=== PATIENT | male | born 1940 | race Caucasian/White ===

== ENCOUNTER 2019-06-12 08:19 | Day surgery (SDC) | payer MEDICARE, MEDICAID ==
[~2019-06-12] VITALS: Ht 177.8 cm; Wt 124.8 kg
[2019-06-12] VITALS (9 sets, daily range): BP systolic 111–140; BP diastolic 45–58
[2019-06-12] MEDS ORDERED: normal saline 1000ml 1,000 ML IV PRN (08:55)
[2019-06-12] MEDS ORDERED: SPIR50TA5 PO (09:13)
[2019-06-12] MEDS ORDERED: FINA5TAB11 PO (09:13)
[2019-06-12] MEDS ORDERED: FURO20TA4 PO (09:13)
[2019-06-12] MEDS ORDERED: GABA-532 PO (09:13)
[2019-06-12] MEDS ORDERED: OMEP-50 PO (09:13)
[2019-06-12] MEDS ORDERED: FLO0.4C PO (09:13)
[2019-06-12] MEDS: albumin 25% 100mL bottle x 1 IV PRN ×2 (10:11→10:37)
== END 2019-06-12 11:37 | disposition home or self-care (01) ==
LOC: SSTAY O 08:19 → MED 3N 08:20 → SSTAY O 11:37
PROVIDERS: ATTEND Radiology Diagnostic Radiology
DX: K70.31 Alcoholic cirrhosis of liver with ascites (principal); Z79.899 Other long term (current) drug therapy
CPT/HCPCS: 49083; C1729; P9047; GO378

== ENCOUNTER 2019-06-20 08:22 | Day surgery (SDC) | payer MEDICARE, MEDICAID ==
[~2019-06-20] VITALS: Ht 177.8 cm; Wt 120.5 kg
[~2019-06-20 08:22] MED LIST: FINA5TAB11 PO; FLO0.4C PO; FURO20TA4 PO; GABA-532 PO; OMEP-50 PO; SPIR50TA5 PO
[2019-06-20 08:45] VITALS: BP 144/61
[2019-06-20] MEDS ORDERED: normal saline 1000ml 1,000 ML IV PRN (08:50)
[2019-06-20] MEDS ORDERED: RANI150T8 PO (09:08)
[2019-06-20 09:30] VITALS: BP 144/61
[2019-06-20] MEDS: albumin 25% 100mL bottle x 1 IV PRN ×2 (09:55→10:30)
[2019-06-20 10:15] VITALS: BP 145/67
== END 2019-06-20 11:15 | disposition home or self-care (01) ==
LOC: MED 3N 08:22 → SSTAY O 08:22
PROVIDERS: ATTEND Radiology Vascular & Interventional Radiology
DX: K70.31 Alcoholic cirrhosis of liver with ascites (principal)
CPT/HCPCS: 49083; C1729; P9047

== ENCOUNTER 2019-06-30 08:08 | Day surgery (SDC) | payer MEDICARE, MEDICAID ==
[2019-06-30] VITALS (11 sets, daily range): BP systolic 109–134; BP diastolic 46–57
[~2019-06-30] VITALS: Ht 177.8 cm; Wt 119.2 kg
[~2019-06-30 08:08] MED LIST changes: -OMEP-50 PO; +RANI150T8 PO
[2019-06-30] MEDS ORDERED: albumin 25% 100mL bottle x 1 IV PRN (08:25)
[2019-06-30] MEDS ORDERED: normal saline 1000ml 1,000 ML IV PRN (08:30)
[2019-06-30] MEDS ORDERED: PROP20TA6 PO (08:42)
[2019-06-30] MEDS ORDERED: TRAM50TA2 PO (08:42)
[2019-06-30] MEDS ORDERED: AMOX500C4 PO (08:42)
[2019-06-30] MEDS ORDERED: POTA10CA44 PO (08:42)
[2019-06-30] MEDS ORDERED: FAMO40TA8 PO (08:42)
== END 2019-06-30 11:15 | disposition home or self-care (01) ==
LOC: SSTAY O 08:08 → MED 3N 08:17 → SSTAY O 11:15
PROVIDERS: ATTEND Radiology Vascular & Interventional Radiology
DX: K70.31 Alcoholic cirrhosis of liver with ascites (principal); Z79.899 Other long term (current) drug therapy
CPT/HCPCS: 49083; C1729; P9047

== ENCOUNTER 2019-07-06 08:18 | Day surgery (SDC) | payer MEDICARE, MEDICAID ==
[2019-07-06] VITALS (9 sets, daily range): BP systolic 120–133; BP diastolic 52–58
[~2019-07-06] VITALS: Ht 177.8 cm; Wt 111.0 kg
[~2019-07-06 08:18] MED LIST changes: +AMOX500C4 PO; +FAMO40TA8 PO; +POTA10CA44 PO; +PROP20TA6 PO; +TRAM50TA2 PO
[2019-07-06] MEDS: albumin 25% 100mL bottle x 1 IV PRN ×2 (10:15→10:49)
== END 2019-07-06 11:35 | disposition home or self-care (01) ==
LOC: U 08:18 → MED 3N 08:18 → U 11:35
PROVIDERS: ATTEND Radiology Vascular & Interventional Radiology
DX: K70.31 Alcoholic cirrhosis of liver with ascites (principal); Z79.899 Other long term (current) drug therapy
CPT/HCPCS: 49083; C1729; P9047

== ENCOUNTER 2019-07-17 08:09 | Day surgery (SDC) | payer MEDICARE, MEDICAID ==
[~2019-07-17] VITALS: Ht 177.8 cm; Wt 114.1 kg
[2019-07-17] VITALS (8 sets, daily range): BP systolic 118–127; BP diastolic 47–57
[2019-07-17] MEDS ORDERED: normal saline 1000ml 1,000 ML IV PRN (08:35)
[2019-07-17] MEDS: albumin 25% 100mL bottle x 1 IV PRN ×2 (09:40→10:02)
== END 2019-07-17 11:05 | disposition home or self-care (01) ==
LOC: SSTAY O 08:09 → MED 3N 08:22 → SSTAY O 11:05
PROVIDERS: ATTEND Radiology Vascular & Interventional Radiology
DX: K70.31 Alcoholic cirrhosis of liver with ascites (principal)
CPT/HCPCS: 49083; C1729; P9047

== ENCOUNTER 2019-07-25 07:51 | Day surgery (SDC) | payer MEDICARE, MEDICAID ==
[~2019-07-25] VITALS: Ht 170.2 cm; Wt 111.6 kg
[2019-07-25] VITALS (7 sets, daily range): BP systolic 102–126; BP diastolic 43–83
[2019-07-25] MEDS: albumin 25% 100mL bottle x 1 IV PRN ×2 (09:49→10:20)
== END 2019-07-25 11:30 | disposition home or self-care (01) ==
LOC: SSTAY O 07:51
PROVIDERS: ATTEND Radiology Diagnostic Radiology
DX: K70.31 Alcoholic cirrhosis of liver with ascites (principal); Z79.899 Other long term (current) drug therapy
CPT/HCPCS: 49083; C1729; P9047

== ENCOUNTER 2019-08-11 09:10 | Day surgery (SDC) | payer MEDICARE, MEDICAID ==
[~2019-08-11] VITALS: Ht 177.8 cm; Wt 103.5 kg
[2019-08-11] VITALS (10 sets, daily range): BP systolic 110–123; BP diastolic 50–79
[~2019-08-11 09:10] MED LIST changes: -AMOX500C4 PO; +FAMO40TA58 PO; -FAMO40TA8 PO; -FINA5TAB11 PO; +FURO-150 PO; -FURO20TA4 PO; -GABA-532 PO; +GABA300C PO; +LACT10SO32 PO; +MAGN250T11 PO; -POTA10CA44 PO; +POTA10TA36 PO; +PROP10TA10 PO; -PROP20TA6 PO; -RANI150T8 PO; -TRAM50TA2 PO
[2019-08-11] MEDS ORDERED: normal saline 1000ml 1,000 ML IV PRN (09:35)
[2019-08-11] MEDS: albumin 25% 100mL bottle x 1 IV PRN ×2 (10:21→11:15)
== END 2019-08-11 12:41 | disposition home or self-care (01) ==
LOC: SSTAY O 09:10
PROVIDERS: ATTEND Radiology Diagnostic Radiology
DX: K70.31 Alcoholic cirrhosis of liver with ascites (principal); N18.9 Chronic kidney disease, unspecified; D64.9 Anemia, unspecified; Z79.899 Other long term (current) drug therapy
CPT/HCPCS: 49083; C1729; P9047

== ENCOUNTER 2019-08-18 08:18 | Day surgery (SDC) | payer MEDICARE, MEDICAID ==
[2019-08-18] VITALS (9 sets, daily range): BP systolic 90–107; BP diastolic 44–55
[~2019-08-18] VITALS: Ht 177.8 cm; Wt 103.3 kg
[2019-08-18] MEDS ORDERED: albumin 25% 100mL bottle x 1 IV PRN (08:50)
[2019-08-18] MEDS ORDERED: normal saline 1000ml 1,000 ML IV PRN (08:50)
== END 2019-08-18 11:40 | disposition home or self-care (01) ==
LOC: SSTAY O 08:18
PROVIDERS: ATTEND Radiology Diagnostic Radiology
DX: K70.31 Alcoholic cirrhosis of liver with ascites (principal); N18.9 Chronic kidney disease, unspecified; D64.9 Anemia, unspecified; Z79.899 Other long term (current) drug therapy
CPT/HCPCS: 49083; C1729; P9047

== ENCOUNTER 2019-08-25 07:00 | Day surgery (SDC) | payer MEDICARE, OTHER, MEDICAID ==
[~2019-08-25] VITALS: Ht 177.8 cm; Wt 103.1 kg
[2019-08-25] VITALS (14 sets, daily range): BP systolic 109–118; BP diastolic 50–70
[2019-08-25] MEDS ORDERED: normal saline 1000ml 1,000 ML IV PRN (07:25)
[2019-08-25] MEDS ORDERED: LACT10SO PO (08:19)
[2019-08-25] MEDS ORDERED: PROP10TA10 PO (08:20)
[2019-08-25] MEDS: albumin 25% 100mL bottle x 1 IV PRN ×2 (08:53→10:18)
== END 2019-08-25 11:15 | disposition home or self-care (01) ==
LOC: SSTAY O 07:00
PROVIDERS: ATTEND Radiology Vascular & Interventional Radiology
DX: K70.31 Alcoholic cirrhosis of liver with ascites (principal); Z79.899 Other long term (current) drug therapy
CPT/HCPCS: 49083; P9047

== ENCOUNTER 2019-09-01 08:00 | Day surgery (SDC) | payer MEDICARE, MEDICAID ==
[2019-09-01] VITALS (11 sets, daily range): BP systolic 96–122; BP diastolic 46–56
[~2019-09-01] VITALS: Ht 177.8 cm; Wt 103.1 kg
[~2019-09-01 08:00] MED LIST changes: +LACT10SO PO; -LACT10SO32 PO
[2019-09-01] MEDS ORDERED: normal saline 1000ml 1,000 ML IV PRN (09:00)
[2019-09-01] MEDS ORDERED: albumin 25% 100mL bottle x 1 IV PRN (09:00)
== END 2019-09-01 12:10 | disposition home or self-care (01) ==
LOC: SSTAY O 08:00
PROVIDERS: ATTEND Radiology Vascular & Interventional Radiology
DX: K70.31 Alcoholic cirrhosis of liver with ascites (principal); Z79.899 Other long term (current) drug therapy
CPT/HCPCS: 49083; P9047

== ENCOUNTER 2019-09-08 08:06 | Day surgery (SDC) | payer MEDICARE, MEDICAID ==
[~2019-09-08] VITALS: Ht 177.8 cm; Wt 101.5 kg
[2019-09-08] VITALS (12 sets, daily range): BP systolic 96–147; BP diastolic 31–56
[2019-09-08] MEDS ORDERED: normal saline 1000ml 1,000 ML IV PRN (08:30)
[2019-09-08] MEDS: albumin 25% 100mL bottle x 1 IV PRN ×2 (10:45→11:18)
== END 2019-09-08 12:05 | disposition home or self-care (01) ==
LOC: SSTAY O 08:06
PROVIDERS: ATTEND Radiology Diagnostic Radiology
DX: K70.31 Alcoholic cirrhosis of liver with ascites (principal); E87.1 Hypo-osmolality and hyponatremia; D69.6 Thrombocytopenia, unspecified; D64.89 Other specified anemias; N18.9 Chronic kidney disease, unspecified; Z79.899 Other long term (current) drug therapy
CPT/HCPCS: 49083; P9047

== ENCOUNTER 2019-09-18 06:21 | Day surgery (SDC) | payer MEDICARE, MEDICAID ==
[2019-09-18] VITALS (10 sets, daily range): BP systolic 100–120; BP diastolic 46–72
[~2019-09-18] VITALS: Ht 177.8 cm; Wt 103.8 kg
[2019-09-18] MEDS ORDERED: normal saline 1000ml 1,000 ML IV PRN (07:15)
[2019-09-18] MEDS: albumin 25% 100mL bottle x 1 IV PRN ×2 (08:48→10:01)
== END 2019-09-18 10:40 | disposition home or self-care (01) ==
LOC: SSTAY O 06:21
PROVIDERS: ATTEND Radiology Vascular & Interventional Radiology
DX: K70.31 Alcoholic cirrhosis of liver with ascites (principal); Z79.899 Other long term (current) drug therapy
CPT/HCPCS: 49083; P9047

== ENCOUNTER 2019-09-25 10:12 | Day surgery (SDC) | payer MEDICARE, MEDICAID ==
[~2019-09-25] VITALS: Ht 177.8 cm; Wt 101.6 kg
[2019-09-25] VITALS (11 sets, daily range): BP systolic 102–124; BP diastolic 47–54
[~2019-09-25 10:12] MED LIST changes: -POTA10TA36 PO; -PROP10TA10 PO
[2019-09-25] MEDS ORDERED: normal saline 1000ml 1,000 ML IV PRN (10:35)
[2019-09-25] MEDS: albumin 25% 100mL bottle x 1 IV PRN ×2 (11:44→12:17)
== END 2019-09-25 14:00 | disposition home or self-care (01) ==
LOC: SSTAY O 10:12
PROVIDERS: ATTEND Radiology Diagnostic Radiology
DX: K70.31 Alcoholic cirrhosis of liver with ascites (principal); N18.9 Chronic kidney disease, unspecified; D64.9 Anemia, unspecified; Z79.899 Other long term (current) drug therapy
CPT/HCPCS: 49083; C1729; P9047

== ENCOUNTER 2019-10-02 07:57 | Day surgery (SDC) | payer MEDICARE, MEDICAID ==
[2019-10-02] VITALS (10 sets, daily range): BP systolic 88–117; BP diastolic 37–61
[~2019-10-02] VITALS: Ht 177.8 cm; Wt 102.1 kg
[2019-10-02] MEDS ORDERED: normal saline 1000ml 1,000 ML IV PRN (08:20)
[2019-10-02] MEDS ORDERED: albumin 25% 100mL bottle x 1 IV PRN (08:20)
[2019-10-02] MEDS ORDERED: CITA10TA9 PO (08:32)
== END 2019-10-02 10:30 | disposition home or self-care (01) ==
LOC: SSTAY O 07:57
PROVIDERS: ATTEND Radiology Diagnostic Radiology
DX: K70.31 Alcoholic cirrhosis of liver with ascites (principal); N18.9 Chronic kidney disease, unspecified; N17.9 Acute kidney failure, unspecified; K76.89 Other specified diseases of liver; D63.8 Anemia in other chronic diseases classified elsewhere; E87.1 Hypo-osmolality and hyponatremia; Z79.899 Other long term (current) drug therapy
CPT/HCPCS: 49083; P9047

== ENCOUNTER 2019-10-09 08:09 | Day surgery (SDC) | payer MEDICARE, MEDICAID ==
[~2019-10-09] VITALS: Ht 177.8 cm; Wt 101.3 kg
[2019-10-09] VITALS (7 sets, daily range): BP systolic 110–122; BP diastolic 51–59
[~2019-10-09 08:09] MED LIST changes: +CITA10TA9 PO
[2019-10-09] MEDS ORDERED: normal saline 1000ml 1,000 ML IV PRN (08:50)
[2019-10-09] MEDS ORDERED: albumin 25% 100mL bottle x 1 IV PRN (08:50)
== END 2019-10-09 11:30 | disposition home or self-care (01) ==
LOC: SSTAY O 08:09
PROVIDERS: ATTEND Radiology Vascular & Interventional Radiology
DX: K70.31 Alcoholic cirrhosis of liver with ascites (principal); N18.9 Chronic kidney disease, unspecified; N17.9 Acute kidney failure, unspecified; D64.89 Other specified anemias; D69.6 Thrombocytopenia, unspecified; E87.1 Hypo-osmolality and hyponatremia; Z79.899 Other long term (current) drug therapy
CPT/HCPCS: 49083; P9047

== ENCOUNTER 2019-10-16 07:51 | Day surgery (SDC) | payer MEDICARE, OTHER, MEDICAID ==
[~2019-10-16] VITALS: Ht 177.8 cm; Wt 102.2 kg
[2019-10-16] MEDS ORDERED: normal saline 1000ml 1,000 ML IV PRN (08:20)
[2019-10-16] MEDS ORDERED: albumin 25% 100mL bottle x 1 IV PRN (08:20)
[2019-10-16] MEDS ORDERED: ACET-2615 PO (08:48)
[2019-10-16 09:13] VITALS: BP 103/52
[2019-10-16 09:42] VITALS: BP 113/52
[2019-10-16 09:59] VITALS: BP 110/54
[2019-10-16 10:12] VITALS: BP 107/49
[2019-10-16 10:30] VITALS: BP 119/83
[2019-10-16 10:39] VITALS: BP 120/56
== END 2019-10-16 11:25 | disposition home or self-care (01) ==
LOC: SSTAY O 07:51
PROVIDERS: ATTEND Radiology Diagnostic Radiology
DX: K70.31 Alcoholic cirrhosis of liver with ascites (principal); Z79.899 Other long term (current) drug therapy
CPT/HCPCS: 49083; P9047

== ENCOUNTER 2019-10-23 08:27 | Day surgery (SDC) | payer MEDICARE, MEDICAID ==
[2019-10-23] VITALS (7 sets, daily range): BP systolic 122–136; BP diastolic 56–80
[~2019-10-23] VITALS: Ht 180.3 cm; Wt 102.0 kg
[~2019-10-23 08:27] MED LIST changes: +ACET-2615 PO
[2019-10-23] MEDS ORDERED: normal saline 1000ml 1,000 ML IV PRN (09:20)
[2019-10-23] MEDS ORDERED: albumin 25% 100mL bottle x 1 IV PRN (09:20)
== END 2019-10-23 12:25 | disposition home or self-care (01) ==
LOC: SSTAY O 08:27
PROVIDERS: ATTEND Radiology Vascular & Interventional Radiology
DX: K70.31 Alcoholic cirrhosis of liver with ascites (principal); Z79.899 Other long term (current) drug therapy
CPT/HCPCS: 49083; P9047

== ENCOUNTER 2019-10-30 07:16 | Day surgery (SDC) | payer MEDICARE, MEDICAID ==
[2019-10-30] VITALS (7 sets, daily range): BP systolic 97–109; BP diastolic 41–53
[~2019-10-30] VITALS: Ht 177.8 cm; Wt 100.7 kg
[2019-10-30] MEDS ORDERED: normal saline 1000ml 1,000 ML IV PRN (07:55)
[2019-10-30] MEDS ORDERED: albumin 25% 100mL bottle x 1 IV PRN (07:55)
== END 2019-10-30 10:15 | disposition home or self-care (01) ==
LOC: SSTAY O 07:16
PROVIDERS: ATTEND Radiology Diagnostic Radiology
DX: K70.31 Alcoholic cirrhosis of liver with ascites (principal); E87.1 Hypo-osmolality and hyponatremia; D69.6 Thrombocytopenia, unspecified; D64.89 Other specified anemias; N18.9 Chronic kidney disease, unspecified; N17.9 Acute kidney failure, unspecified; Z79.899 Other long term (current) drug therapy
CPT/HCPCS: 49083; P9047

== ENCOUNTER 2019-11-06 07:57 | Day surgery (SDC) | payer MEDICARE, MEDICAID ==
[~2019-11-06] VITALS: Ht 177.8 cm; Wt 101.4 kg
[2019-11-06] VITALS (10 sets, daily range): BP systolic 99–124; BP diastolic 45–57
[2019-11-06] MEDS ORDERED: normal saline 1000ml 1,000 ML IV PRN (08:25)
[2019-11-06] MEDS ORDERED: albumin 25% 100mL bottle x 1 IV PRN (08:25)
== END 2019-11-06 11:10 | disposition home or self-care (01) ==
LOC: SSTAY O 07:57
PROVIDERS: ATTEND Radiology Vascular & Interventional Radiology
DX: K70.31 Alcoholic cirrhosis of liver with ascites (principal); Z79.899 Other long term (current) drug therapy
CPT/HCPCS: 49083; P9047

== ENCOUNTER 2019-11-13 08:16 | Day surgery (SDC) | payer MEDICARE, MEDICAID ==
[~2019-11-13] VITALS: Ht 177.8 cm; Wt 106.0 kg
[2019-11-13] VITALS (8 sets, daily range): BP systolic 119–128; BP diastolic 50–59
[2019-11-13] MEDS ORDERED: normal saline 1000ml 1,000 ML IV PRN (09:05)
[2019-11-13] MEDS: albumin 25% 100mL bottle x 1 IV PRN ×2 (10:02→10:08)
== END 2019-11-13 11:30 | disposition home or self-care (01) ==
LOC: SSTAY O 08:16
PROVIDERS: ATTEND Radiology Diagnostic Radiology
DX: K70.31 Alcoholic cirrhosis of liver with ascites (principal); Z79.899 Other long term (current) drug therapy
CPT/HCPCS: 49083; P9047

== ENCOUNTER 2019-11-21 07:46 | Day surgery (SDC) | payer MEDICARE, MEDICAID ==
[2019-11-21] VITALS (9 sets, daily range): BP systolic 102–123; BP diastolic 32–67
[~2019-11-21] VITALS: Ht 177.8 cm; Wt 107.7 kg
[2019-11-21] MEDS ORDERED: normal saline 1000ml 1,000 ML IV PRN (08:25)
[2019-11-21] MEDS: albumin 25% 100mL bottle x 1 IV PRN ×2 (09:35→10:13)
== END 2019-11-21 11:35 | disposition home or self-care (01) ==
LOC: SSTAY O 07:46
PROVIDERS: ATTEND Radiology Vascular & Interventional Radiology
DX: R18.8 Other ascites (principal)
CPT/HCPCS: 49083; P9047

== ENCOUNTER 2019-11-27 09:04 | Day surgery (SDC) | payer MEDICARE, MEDICAID ==
[2019-11-27] VITALS (7 sets, daily range): BP systolic 106–132; BP diastolic 48–88
[~2019-11-27] VITALS: Ht 177.8 cm; Wt 108.5 kg
[2019-11-27] MEDS: albumin 25% 100mL bottle x 1 IV PRN ×2 (10:04→10:39)
== END 2019-11-27 12:15 | disposition home or self-care (01) ==
LOC: SSTAY O 09:04
PROVIDERS: ATTEND Radiology Diagnostic Radiology
DX: K70.31 Alcoholic cirrhosis of liver with ascites (principal); Z79.899 Other long term (current) drug therapy
CPT/HCPCS: 49083; P9047

== ENCOUNTER 2019-12-04 08:06 | Day surgery (SDC) | payer MEDICARE, MEDICAID ==
[2019-12-04] VITALS (11 sets, daily range): BP systolic 100–139; BP diastolic 50–65
[~2019-12-04] VITALS: Ht 177.8 cm; Wt 107.0 kg
[2019-12-04] MEDS: albumin 25% 100mL bottle x 1 IV PRN ×2 (09:39→10:07)
== END 2019-12-04 11:50 | disposition home or self-care (01) ==
LOC: SSTAY O 08:06
PROVIDERS: ATTEND Radiology Vascular & Interventional Radiology
DX: K70.31 Alcoholic cirrhosis of liver with ascites (principal)
CPT/HCPCS: 49083; P9047

== ENCOUNTER 2019-12-15 08:02 | Day surgery (SDC) | payer MEDICARE, MEDICAID ==
[2019-12-15] VITALS (13 sets, daily range): BP systolic 105–134; BP diastolic 44–66
[~2019-12-15] VITALS: Ht 177.8 cm; Wt 110.2 kg
[2019-12-15] MEDS: albumin 25% 100mL bottle x 1 IV PRN ×2 (10:17→11:01)
== END 2019-12-15 12:27 | disposition home or self-care (01) ==
LOC: SSTAY O 08:02
PROVIDERS: ATTEND Radiology Vascular & Interventional Radiology
DX: K70.31 Alcoholic cirrhosis of liver with ascites (principal); Z79.899 Other long term (current) drug therapy
CPT/HCPCS: 49083; P9047

== ENCOUNTER 2019-12-22 07:58 | Day surgery (SDC) | payer MEDICARE, MEDICAID ==
[2019-12-22] VITALS (13 sets, daily range): BP systolic 82–120; BP diastolic 40–75
[~2019-12-22] VITALS: Ht 177.8 cm; Wt 104.3 kg
[2019-12-22] MEDS: albumin 25% 100mL bottle x 1 IV PRN ×2 (09:39→10:37)
== END 2019-12-22 12:05 | disposition home or self-care (01) ==
LOC: SSTAY O 07:58
PROVIDERS: ATTEND Radiology Vascular & Interventional Radiology
DX: K70.31 Alcoholic cirrhosis of liver with ascites (principal)
CPT/HCPCS: 49083; P9047

== ENCOUNTER 2019-12-29 08:35 | Day surgery (SDC) | payer MEDICARE, MEDICAID ==
[2019-12-29] VITALS (15 sets, daily range): BP systolic 86–142; BP diastolic 40–65
[~2019-12-29] VITALS: Ht 177.8 cm; Wt 97.2 kg
[2019-12-29] MEDS ORDERED: albumin 25% 100mL bottle x 1 IV PRN ×2 (09:05→10:05)
== END 2019-12-29 12:20 | disposition home or self-care (01) ==
LOC: SSTAY O 08:35
PROVIDERS: ATTEND Radiology Diagnostic Radiology
DX: K70.31 Alcoholic cirrhosis of liver with ascites (principal); Z79.899 Other long term (current) drug therapy
CPT/HCPCS: 49083; P9047

== ENCOUNTER 2020-01-05 08:01 | Day surgery (SDC) | payer MEDICARE, MEDICAID ==
[~2020-01-05] VITALS: Ht 177.8 cm; Wt 97.4 kg
[2020-01-05] VITALS (9 sets, daily range): BP systolic 94–123; BP diastolic 48–73
[2020-01-05] MEDS: albumin 25% 100mL bottle x 1 IV PRN ×2 (09:43→10:47)
== END 2020-01-05 12:22 | disposition home or self-care (01) ==
LOC: SSTAY O 08:01
PROVIDERS: ATTEND Radiology Vascular & Interventional Radiology
DX: K70.31 Alcoholic cirrhosis of liver with ascites (principal); Z79.899 Other long term (current) drug therapy
CPT/HCPCS: 49083; P9047

== ENCOUNTER 2020-01-12 08:09 | Day surgery (SDC) | payer MEDICARE, MEDICAID ==
[~2020-01-12] VITALS: Ht 177.8 cm; Wt 97.8 kg
[2020-01-12] VITALS (8 sets, daily range): BP systolic 97–112; BP diastolic 41–59
[2020-01-12] MEDS ORDERED: normal saline 1000ml 1,000 ML IV PRN (08:30)
[2020-01-12] MEDS: albumin 25% 100mL bottle x 1 IV PRN ×2 (10:09→10:35)
== END 2020-01-12 11:20 | disposition home or self-care (01) ==
LOC: SSTAY O 08:09
PROVIDERS: ATTEND Radiology Diagnostic Radiology
DX: K70.31 Alcoholic cirrhosis of liver with ascites (principal); Z79.899 Other long term (current) drug therapy
CPT/HCPCS: 49083; P9047

== ENCOUNTER 2020-01-26 08:10 | Day surgery (SDC) | payer MEDICARE, MEDICAID ==
[~2020-01-26] VITALS: Ht 152.4 cm; Wt 99.5 kg
[2020-01-26] VITALS (10 sets, daily range): BP systolic 87–119; BP diastolic 42–56
[~2020-01-26 08:10] MED LIST changes: -ACET-2615 PO; +FLUT16SP26 INH; -SPIR50TA5 PO
[2020-01-26] MEDS ORDERED: albumin (human) 25% 100ml IV 100 ML IV SCH (09:40)
[2020-01-26] MEDS: albumin 25% 100mL bottle x 1 IV PRN ×2 (09:49→10:23)
== END 2020-01-26 11:40 | disposition home or self-care (01) ==
LOC: SSTAY O 08:10
PROVIDERS: ATTEND Radiology Diagnostic Radiology
DX: K70.31 Alcoholic cirrhosis of liver with ascites (principal); E87.1 Hypo-osmolality and hyponatremia; E87.5 Hyperkalemia; Z79.899 Other long term (current) drug therapy
CPT/HCPCS: 49083; P9047

== ENCOUNTER 2020-01-31 14:06 | Inpatient (IN) | payer MEDICARE, MEDICAID ==
[~2020-01-31] VITALS: Ht 177.8 cm; Wt 88.4 kg
[2020-01-31] MEDS ORDERED: normal saline 1000ML IV soln IVB ONE (14:20)
[2020-01-31 15:06] LABS: BASOPHILS % (AUTO) 0.5 % (0-1); EOSINOPHILS % (AUTO) 0.3 % (0-6); HEMATOCRIT 23.5 % (42.0-52.0); HEMOGLOBIN 8.1 g/dl (14.0-17.9); LYMPHOCYTES # (AUTO) 0.4 X10'3 (1.1-4.8); LYMPHOCYTES % (AUTO) 11.2 % (21-51); MEAN CORPUSCULAR HEMOGLOBIN 32.2 PG (27.0-31.0); MEAN CORPUSCULAR HGB CONC 34.3 g/dL (33.0-36.5); MEAN CORPUSCULAR VOLUME 93.8 FL (78-98); MEAN PLATELET VOLUME 6.5 FL (7.4-10.4); MONOCYTES # (AUTO) 0.4 X10'3 (0-0.9); MONOCYTES % (AUTO) 12.3 % (2-12); NEUTROPHILS # (AUTO) 2.7 X10'3 (1.8-7.7); NEUTROPHILS % (AUTO) 75.7 % (42-75); PLATELET COUNT 61 X10'3 (140-440); RED CELL DISTRIBUTION WIDTH 15.4 % (11.5-14.5); WHITE BLOOD COUNT 3.5 X10'3 (4.5-11.0)
[2020-01-31 15:22] LABS: LACTIC SEPSIS 1.9 MMOL/L (0.4-2.0)
[2020-01-31 15:28] LABS: ALANINE AMINOTRANSFERASE 20 U/L (12-78); ALBUMIN 2.9 G/DL (3.4-5.0); ALBUMIN/GLOBULIN RATIO 1.2 (1.1-1.5); ALKALINE PHOSPHATASE 77 IU/L (46-116); ANION GAP 10 (8-16); ASPARTATE AMINO TRANSFERASE 22 U/L (10-37); BILIRUBIN,TOTAL 0.9 MG/DL (0.1-1.0); BLOOD UREA NITROGEN 73 MG/DL (7-18); BUN/CREATININE RATIO 23.3 (5.4-32.0); CALCIUM 8.5 MG/DL (8.5-10.1); CHLORIDE 99 MMOL/L (99-107); CREATININE 3.13 MG/DL (0.60-1.10); GLUCOSE 135 MG/DL (70-104); POTASSIUM 4.8 MMOL/L (3.5-5.1); SODIUM 129 MMOL/L (135-145); TOTAL CARBON DIOXIDE 20.1 MMOL/L (24-32); TOTAL PROTEIN 5.3 G/DL (6.4-8.2); eGFR 19 ML/MIN
[2020-01-31 15:30] LABS: TROPONIN I < 0.04 NG/ML (0.0-0.05)
[2020-01-31 15:32] LABS: PLATELET ESTIMATE DECREASED
[2020-01-31] MEDS ORDERED: magnesium Cl slow-release 64mg tablet PO PRN (16:30)
[2020-01-31] MEDS ORDERED: bisacodyl 10mg suppository rectal RC PRN (16:30)
[2020-01-31] MEDS ORDERED: potassium Cl 20 mEq SR tablet PO PRN (16:30)
[2020-01-31] MEDS ORDERED: magnesium hydroxide 30ml (MOM) UD suspension PO PRN (16:30)
[2020-01-31] MEDS ORDERED: diphenhydrAMINE 25mg capsule PO PRN (16:30)
[2020-01-31] MEDS ORDERED: potassium CL 10mEq/100ml bag 100 ML IV PRN ×2 (16:30)
[2020-01-31] MEDS ORDERED: mag hydrox/Alum hydrox/simeth 30ml oral suspension PO PRN (16:30)
[2020-01-31] MEDS ORDERED: ondansetron/PF 4mg/2ml inj IV PRN (16:30)
[2020-01-31] MEDS ORDERED: acetaminophen 650mg rectal suppository RC PRN (16:30)
[2020-01-31] MEDS ORDERED: HYDROcodone/acetaminophen 10/325mg tab PO PRN (16:30)
[2020-01-31] MEDS ORDERED: acetaminophen 325mg tablet PO PRN (16:30)
[2020-01-31] MEDS ORDERED: magnesium 4gm in 100ml NS 100 ML IV PRN (16:30)
[2020-01-31] MEDS ORDERED: magnesium 2GM in 50ml NS 50 ML IV PRN (16:30)
[2020-01-31] MEDS ORDERED: HYDROcodone/acetaminophen 5mg/325mg tablet PO PRN (16:30)
[2020-01-31] MEDS ORDERED: morphine 2 MG/ML inj. syringe IV PRN ×2 (16:30)
[2020-01-31] MEDS: normal saline 1000ml 1,000 ML IV SCH (19:16)
[2020-01-31] MEDS: K and/or MAG REPLACEMENT MC SCH (20:00)
[2020-01-31 22:40] LABS: CLARITY,URINE CLEAR (Clear); COLOR,URINE YELLOW (Yellow); GLUCOSE, URINE NEGATIVE (Neg); KETONES,URINE NEGATIVE (Neg); LEUKOCYTE ESTERASE ,URINE NEGATIVE (Neg); NITRITES, URINE NEGATIVE (Neg); OCCULT BLOOD,URINE NEGATIVE (Neg); PH,URINE 5.5 (4.8-8.0); PROTEIN,URINE NEGATIVE (Neg)
[2020-01-31 22:41] LABS: UA COLLECTION TYPE NON-SPECIFIED
[2020-01-31 23:13] VITALS: BP 111/44
--- NOTE | 2020-01-31 23:29 | NUR ---
Pt straight cath'd for ER order to send UA - 650ml out during straight cath, bladder scanned patient ~994ml resulted. Discussed with Dr. Pearce, placed order for malhotra for urinary retention. Addendum: 02/01/20 at 0618 by Lokesh Cali RN AT 0300 CHECKED MALHOTRA AND IT ONLY HAD ~100ML OUT. OBSERVABLE FLUID AT TIP OF CATHETER NEAR MEATUS UNABLE TO DRAIN. ATTEMPTED TO IRRIGATE BLADDER 800ML IN, 950ML OUT, VERY RARE MICRO CLOTS OBSERVED. MALHOTRA CONTINUED TO NOT FLOW. DISCONTINUED PREVIOUS MALHOTRA AND CATHETER HAD OBSERVABLE CLOT INSIDE CATHETER. REPLACED MALHOTRA AT 0530 DRAINING APPEARS IMPROVED. WILL CONTINUE TO MONITOR AND PASS ON TO DAY SHIFT.
[2020-02-01] MEDS: sodium chloride 1gm tablet PO SCH (00:10)
[2020-02-01] MEDS: normal saline 1000ml 1,000 ML IV SCH ×3 (01:34→22:18)
[2020-02-01 02:00] VITALS: BP 105/53
[2020-02-01 05:49] LABS: BASOPHILS % (AUTO) 0.4 % (0-1); EOSINOPHILS % (AUTO) 1.3 % (0-6); HEMATOCRIT 23.1 % (42.0-52.0); HEMOGLOBIN 7.9 g/dl (14.0-17.9); LYMPHOCYTES # (AUTO) 0.7 X10'3 (1.1-4.8); LYMPHOCYTES % (AUTO) 21.4 % (21-51); MEAN CORPUSCULAR HEMOGLOBIN 32.6 PG (27.0-31.0); MEAN CORPUSCULAR HGB CONC 34.3 g/dL (33.0-36.5); MEAN PLATELET VOLUME 6.5 FL (7.4-10.4); MONOCYTES # (AUTO) 0.5 X10'3 (0-0.9); MONOCYTES % (AUTO) 16.5 % (2-12); NEUTROPHILS # (AUTO) 1.8 X10'3 (1.8-7.7); NEUTROPHILS % (AUTO) 60.4 % (42-75); PLATELET COUNT 59 X10'3 (140-440); RED BLOOD COUNT 2.43 X10'6 (4.70-6.10); RED CELL DISTRIBUTION WIDTH 15.6 % (11.5-14.5); WHITE BLOOD COUNT 3.1 X10'3 (4.5-11.0)
[2020-02-01 06:00] VITALS: BP 131/50
[2020-02-01 06:00] LABS: ALANINE AMINOTRANSFERASE 20 U/L (12-78); ALBUMIN 2.7 G/DL (3.4-5.0); ALBUMIN/GLOBULIN RATIO 1.1 (1.1-1.5); ALKALINE PHOSPHATASE 72 IU/L (46-116); ANION GAP 11 (8-16); ASPARTATE AMINO TRANSFERASE 23 U/L (10-37); BILIRUBIN,TOTAL 0.9 MG/DL (0.1-1.0); BLOOD UREA NITROGEN 75 MG/DL (7-18); BUN/CREATININE RATIO 27.3 (5.4-32.0); CALCIUM 8.9 MG/DL (8.5-10.1); CHLORIDE 100 MMOL/L (99-107); CREATININE 2.75 MG/DL (0.60-1.10); GLUCOSE 129 MG/DL (70-104); MAGNESIUM 2.5 MG/DL (1.5-2.4); PHOSPHORUS 4.9 MG/DL (2.3-4.5); POTASSIUM 4.4 MMOL/L (3.5-5.1); SODIUM 129 MMOL/L (135-145); TOTAL CARBON DIOXIDE 18.5 MMOL/L (24-32); TOTAL PROTEIN 5.2 G/DL (6.4-8.2); eGFR 22 ML/MIN
--- NOTE | 2020-02-01 06:15 | NUR ---
Problems reprioritized. Patient report given, questions answered & plan of care reviewed with BUTCH KAMARA.
--- NOTE | 2020-02-01 06:28 | NUR ---
Patient in room PCU 3018. I have received report from Yahir KAMARA and had the opportunity to ask questions and assume patient care.
[2020-02-01 07:17] LABS: PLATELET ESTIMATE DECREASED; TOTAL CELLS COUNTED 100
[2020-02-01] MEDS: K and/or MAG REPLACEMENT MC SCH ×2 (08:00→20:00)
[2020-02-01 11:00] VITALS: BP 117/54
--- NOTE | 2020-02-01 14:34 | NUR ---
PAGER ID: [phone] MESSAGE: [id number] Raudel Renteria: Med rec is reviewed, also pt continues to have blood tinged urine in malhotra catheter, pt states he has BPH. thanks chanda [phone]
[2020-02-01 15:00] VITALS: BP 113/55
[2020-02-01 18:00] VITALS: BP 114/52
--- NOTE | 2020-02-01 18:00 | NUR ---
Patient in room PCU 3018. I have received report from Rom KAMARA and had the opportunity to ask questions and assume patient care.
--- NOTE | 2020-02-01 18:10 | NUR ---
Patient in room PCU 3018. I have received report from ASAD Cueto and had the opportunity to ask questions and assume patient care.
--- NOTE | 2020-02-01 18:25 | NUR ---
Problems reprioritized. Patient report given, questions answered & plan of care reviewed with Stephanie KAMARA.
[2020-02-01] MEDS: fluticasone nasal spray 16GM bottle NS SCH (19:52)
[2020-02-01] MEDS: furosemide 20MG tablet PO SCH (19:52)
[2020-02-01] MEDS: famotidine 20mg tablet PO SCH (19:52)
[2020-02-01 22:00] VITALS: BP 110/50
[2020-02-02] VITALS (9 sets, daily range): BP systolic 85–114; BP diastolic 37–53
[2020-02-02] MEDS ORDERED: magnesium oxide 400mg tablet PO SCH
[2020-02-02] MEDS: gabapentin 300mg capsule PO SCH ×4 (00:17→23:59)
--- NOTE | 2020-02-02 05:57 | NUR ---
Orientee documentation: I have reviewed and agree with all interventions, assessments, medication passed performed and documented by Kellie KAMARA.
--- NOTE | 2020-02-02 06:21 | NUR ---
Patient in room PCU 3018. I have received report from Kellie KAMARA and had the opportunity to ask questions and assume patient care.
--- NOTE | 2020-02-02 06:24 | NUR ---
Problems reprioritized. Patient report given, questions answered & plan of care reviewed with Rom KAMARA.
--- NOTE | 2020-02-02 06:26 | NUR ---
Problems reprioritized. Patient report given, questions answered & plan of care reviewed with ASAD Cueto.
[2020-02-02 07:01] LABS: BASOPHILS % (AUTO) 0.6 % (0-1); EOSINOPHILS % (AUTO) 0.7 % (0-6); HEMOGLOBIN 7.5 g/dl (14.0-17.9); LYMPHOCYTES # (AUTO) 0.6 X10'3 (1.1-4.8); LYMPHOCYTES % (AUTO) 14.2 % (21-51); MEAN CORPUSCULAR HEMOGLOBIN 32.7 PG (27.0-31.0); MEAN CORPUSCULAR HGB CONC 35.2 g/dL (33.0-36.5); MEAN PLATELET VOLUME 6.3 FL (7.4-10.4); MONOCYTES # (AUTO) 0.5 X10'3 (0-0.9); MONOCYTES % (AUTO) 13.8 % (2-12); NEUTROPHILS # (AUTO) 2.8 X10'3 (1.8-7.7); NEUTROPHILS % (AUTO) 70.7 % (42-75); PLATELET COUNT 61 X10'3 (140-440); RED CELL DISTRIBUTION WIDTH 15.3 % (11.5-14.5); WHITE BLOOD COUNT 3.9 X10'3 (4.5-11.0)
[2020-02-02 07:06] LABS: HEMATOCRIT 21.4 % (42.0-52.0)
[2020-02-02 07:17] LABS: ALANINE AMINOTRANSFERASE 19 U/L (12-78); ALBUMIN 2.4 G/DL (3.4-5.0); ANION GAP 10 (8-16); ASPARTATE AMINO TRANSFERASE 17 U/L (10-37); BILIRUBIN,TOTAL 0.8 MG/DL (0.1-1.0); BLOOD UREA NITROGEN 67 MG/DL (7-18); BUN/CREATININE RATIO 32.5 (5.4-32.0); CALCIUM 8.4 MG/DL (8.5-10.1); CHLORIDE 105 MMOL/L (99-107); CREATININE 2.06 MG/DL (0.60-1.10); GLUCOSE 118 MG/DL (70-104); MAGNESIUM 2.3 MG/DL (1.5-2.4); PHOSPHORUS 3.8 MG/DL (2.3-4.5); POTASSIUM 4.8 MMOL/L (3.5-5.1); SODIUM 135 MMOL/L (135-145); TOTAL CARBON DIOXIDE 19.7 MMOL/L (24-32); TOTAL PROTEIN 4.7 G/DL (6.4-8.2); eGFR 31 ML/MIN
--- NOTE | 2020-02-02 07:17 | NUR ---
PAGER ID: [phone] MESSAGE: [id number] Raudel Renteria: Reporting critical lab of Hgb 7.5 and HCT 21.4, previously hgb 7.9 and hct 23.1, no apparent bleeding, pt still has slight pink tint to urine via malhotra catheter but has improved from yesterday. thanks Rom [phone]
[2020-02-02 07:29] LABS: ALKALINE PHOSPHATASE 62 IU/L (46-116)
[2020-02-02] MEDS: fluticasone nasal spray 16GM bottle NS SCH ×2 (07:50→20:17)
[2020-02-02] MEDS: CITALOpram 10mg tablet PO SCH (07:50)
[2020-02-02] MEDS: tamsulosin 0.4mg capsule PO SCH (07:52)
[2020-02-02] MEDS: furosemide 20MG tablet PO SCH ×2 (07:52→20:17)
[2020-02-02] MEDS: famotidine 20mg tablet PO SCH ×2 (07:53→20:17)
[2020-02-02] MEDS: sodium chloride 1gm tablet PO SCH ×4 (07:53→20:18)
[2020-02-02] MEDS: K and/or MAG REPLACEMENT MC SCH ×2 (08:00→20:00)
[2020-02-02] MEDS ORDERED: lactulose 20gm/30ml cup PO SCH ×2 (08:00→13:00)
--- NOTE | 2020-02-02 08:10 | NUR ---
PAGER ID: [phone] MESSAGE: [id number] Raudel Renteria: During morning medpass, pt cognition has changed, he is having more difficulty following directions and staying awake, VSS, please advise. thanks chanda [phone]
[2020-02-02] MEDS: normal saline 1000ml 1,000 ML IV SCH ×2 (08:27→18:30)
--- NOTE | 2020-02-02 09:28 | NUR ---
received orders for ammonia levels per dr fountain
[2020-02-02] MEDS ORDERED: albumin (human) 25% 100 ML IV solution IV ONE (10:10)
--- NOTE | 2020-02-02 12:03 | NUR ---
PAGER ID: [phone] MESSAGE: [id number] Raudel Renteria: FYI ammonia levels results are 125 today, an increase from 27, current orders are for lactulose 30g qam only. thanks chanda [phone]
--- NOTE | 2020-02-02 12:18 | NUR ---
Relieving primary RN. Orders to change 30 gm lactulose from daily to q2h put in per Dr. Kovacs.
--- NOTE | 2020-02-02 13:01 | NUR ---
PAGER ID: [phone] MESSAGE: [id number] Raudel Renteria: Pt is unable to stay awake for lactulose, can we place NG tube? thanks chanda [phone]
[2020-02-02] MEDS ORDERED: Lactulose Enema **for rectal use only RC ONE ×2 (13:50)
--- NOTE | 2020-02-02 13:50 | NUR ---
received orders to change lactulose to q4h and to place NG tube to patient per dr. fountain
--- NOTE | 2020-02-02 16:00 | NUR ---
Pt was able to take PO lactulose without needing NG tube, will continue to monitor.
[2020-02-02] MEDS: lactulose 20gm/30ml cup PO SCH ×3 (16:10→23:59)
--- NOTE | 2020-02-02 18:20 | NUR ---
Patient in room PCU 3018. I have received report from Rom KAMARA and had the opportunity to ask questions and assume patient care. Rectal tube, malhotra catheter, and IV intact
--- NOTE | 2020-02-02 18:25 | NUR ---
Problems reprioritized. Patient report given, questions answered & plan of care reviewed with Melisa KAMARA.
--- NOTE | 2020-02-03 00:36 | NUR ---
Patient in room U 3018. I have received report from Rom KAMARA and had the opportunity to ask questions and assume patient care. Addendum: 02/04/20 at 0537 by Jackelyn Putnam RN Amended: Links added.
[2020-02-03 02:00] VITALS: BP 86/47
--- NOTE | 2020-02-03 02:26 | NUR ---
3018A Dexter. On lactulose Q4hr with red bottom. Can I get an order for rectal tube
[2020-02-03] MEDS: lactulose 20gm/30ml cup PO SCH ×5 (03:56→22:47)
[2020-02-03 06:00] VITALS: BP 95/44
--- NOTE | 2020-02-03 06:10 | NUR ---
Problems reprioritized. Patient report given, questions answered & plan of care reviewed with oRm KAMARA.
--- NOTE | 2020-02-03 06:12 | NUR ---
Patient in room PCU 3018. I have received report from Melisa KAMARA and had the opportunity to ask questions and assume patient care.
[2020-02-03 06:52] LABS: BASOPHILS % (AUTO) 0.3 % (0-1); EOSINOPHILS % (AUTO) 0.5 % (0-6); LYMPHOCYTES # (AUTO) 0.5 X10'3 (1.1-4.8); LYMPHOCYTES % (AUTO) 12.5 % (21-51); MEAN CORPUSCULAR HGB CONC 34.8 g/dL (33.0-36.5); MEAN CORPUSCULAR VOLUME 94.7 FL (78-98); MEAN PLATELET VOLUME 6.5 FL (7.4-10.4); MONOCYTES # (AUTO) 0.6 X10'3 (0-0.9); MONOCYTES % (AUTO) 12.6 % (2-12); NEUTROPHILS # (AUTO) 3.2 X10'3 (1.8-7.7); NEUTROPHILS % (AUTO) 74.1 % (42-75); PLATELET COUNT 52 X10'3 (140-440); RED BLOOD COUNT 2.43 X10'6 (4.70-6.10); RED CELL DISTRIBUTION WIDTH 15.1 % (11.5-14.5); WHITE BLOOD COUNT 4.4 X10'3 (4.5-11.0)
[2020-02-03 07:17] LABS: ALANINE AMINOTRANSFERASE 18 U/L (12-78); ALBUMIN 2.8 G/DL (3.4-5.0); ALBUMIN/GLOBULIN RATIO 1.3 (1.1-1.5); ALKALINE PHOSPHATASE 58 IU/L (46-116); ANION GAP 11 (8-16); ASPARTATE AMINO TRANSFERASE 17 U/L (10-37); BILIRUBIN,TOTAL 0.9 MG/DL (0.1-1.0); BLOOD UREA NITROGEN 55 MG/DL (7-18); BUN/CREATININE RATIO 35.5 (5.4-32.0); CHLORIDE 112 MMOL/L (99-107); CREATININE 1.55 MG/DL (0.60-1.10); GLUCOSE 134 MG/DL (70-104); MAGNESIUM 2.3 MG/DL (1.5-2.4); PHOSPHORUS 3.5 MG/DL (2.3-4.5); POTASSIUM 3.4 MMOL/L (3.5-5.1); SODIUM 142 MMOL/L (135-145); TOTAL CARBON DIOXIDE 18.7 MMOL/L (24-32); eGFR 43 ML/MIN
[2020-02-03] MEDS: K and/or MAG REPLACEMENT MC SCH ×2 (08:00→20:00)
[2020-02-03] MEDS: normal saline 1000ml 1,000 ML IV SCH ×2 (08:00→14:30)
[2020-02-03] MEDS: famotidine 20mg tablet PO SCH ×2 (08:15→22:34)
[2020-02-03] MEDS: gabapentin 300mg capsule PO SCH ×3 (08:16→22:35)
[2020-02-03] MEDS: tamsulosin 0.4mg capsule PO SCH (08:16)
[2020-02-03] MEDS: sodium chloride 1gm tablet PO SCH ×3 (08:16→16:55)
[2020-02-03] MEDS: furosemide 20MG tablet PO SCH ×2 (08:16→20:00)
[2020-02-03] MEDS: CITALOpram 10mg tablet PO SCH (08:16)
[2020-02-03] MEDS: fluticasone nasal spray 16GM bottle NS SCH ×2 (08:16→20:00)
[2020-02-03] MEDS: potassium Cl 20 mEq SR tablet PO PRN ×2 (10:05→13:52)
[2020-02-03 11:00] VITALS: BP 94/43
[2020-02-03 18:00] VITALS: BP 114/57
--- NOTE | 2020-02-03 18:43 | NUR ---
Problems reprioritized. Patient report given, questions answered & plan of care reviewed with Maggie KAMARA.
--- NOTE | 2020-02-03 21:30 | NUR ---
Notified Dr. Pearce regarding pt's Bp of 90/39. Addendum: 02/04/20 at 0200 by Jackelyn Putnam RN Amended: Links added.
--- NOTE | 2020-02-03 21:40 | NUR ---
Pt. awake but confused to time and day; aware of own name and at this time. Reoriented pt to place and time. Pt. denies pain at this time. Repositioned pt. and provided cath and armani-anal care. Call light within reach; reminded pt. to call nurse with any need. Bed in low position. Addendum: 02/04/20 at 0146 by Jackelyn Putnam RN Amended: Links added.
[2020-02-03] MEDS: sodium bicarbonate 650mg tablet PO SCH (22:34)
[2020-02-03 22:42] VITALS: BP 90/39
--- NOTE | 2020-02-03 22:57 | NUR ---
2100 lasi dose held d/t low bp 90/39. Addendum: 02/03/20 at 2259 by Jackelyn Putnam RN Amended: Links added. Addendum: 02/04/20 at 0148 by Jackelyn Putnam RN Bryce chavez scheduled for 2099 d/t low Bp of 90/39.
[2020-02-03] MEDS ORDERED: magnesium Cl slow-release 64mg tablet PO PRN (23:45)
[2020-02-03] MEDS ORDERED: potassium CL 10mEq/100ml bag 100 ML IV PRN (23:45)
[2020-02-03] MEDS ORDERED: potassium Cl 20 mEq SR tablet PO PRN ×2 (23:45)
[2020-02-03] MEDS ORDERED: magnesium 4gm in 100ml NS 100 ML IV PRN (23:45)
--- NOTE | 2020-02-04 00:01 | NUR ---
Rectaltube and f/c intact/patent draining to gravity. Addendum: 02/04/20 at 0602 by Jackelyn Putnam RN Amended: Links added.
[2020-02-04 02:50] VITALS: BP 83/47
[2020-02-04] MEDS: lactulose 20gm/30ml cup PO SCH ×5 (02:54→12:37)
--- NOTE | 2020-02-04 05:00 | NUR ---
pt. slept well with no episodes of SOB this shift. Isolation precaution maintained. Call light within reach. Encouraged pt. to request for nurse with any need. Pt. verbalized understanding. Addendum: 02/04/20 at 721 by Jackelyn Putnam RN Amended: Links added. Addendum: 02/04/20 at 722 by Jackelyn Putnam RN Note on wrong pt.Wrong pt
[2020-02-04 06:00] VITALS: BP 104/54
--- NOTE | 2020-02-04 06:00 | NUR ---
Problems reprioritized. Patient report given, questions answered & plan of care reviewed with Maryjo KAMARA. Addendum: 02/04/20 at 0714 by Jackelyn Putnam RN Amended: Links added.
[2020-02-04 06:32] LABS: BASOPHILS % (AUTO) 0.3 % (0-1); EOSINOPHILS % (AUTO) 0.3 % (0-6); HEMATOCRIT 23.2 % (42.0-52.0); HEMOGLOBIN 8.1 g/dl (14.0-17.9); LYMPHOCYTES # (AUTO) 0.7 X10'3 (1.1-4.8); LYMPHOCYTES % (AUTO) 14.7 % (21-51); MEAN CORPUSCULAR HEMOGLOBIN 32.9 PG (27.0-31.0); MEAN CORPUSCULAR HGB CONC 34.7 g/dL (33.0-36.5); MEAN CORPUSCULAR VOLUME 94.9 FL (78-98); MEAN PLATELET VOLUME 6.6 FL (7.4-10.4); MONOCYTES # (AUTO) 0.6 X10'3 (0-0.9); MONOCYTES % (AUTO) 13.5 % (2-12); NEUTROPHILS # (AUTO) 3.3 X10'3 (1.8-7.7); NEUTROPHILS % (AUTO) 71.2 % (42-75); PLATELET COUNT 57 X10'3 (140-440); RED BLOOD COUNT 2.45 X10'6 (4.70-6.10); RED CELL DISTRIBUTION WIDTH 15.4 % (11.5-14.5); WHITE BLOOD COUNT 4.6 X10'3 (4.5-11.0)
[2020-02-04 06:40] LABS: ALANINE AMINOTRANSFERASE 17 U/L (12-78); ALBUMIN 2.5 G/DL (3.4-5.0); ALBUMIN/GLOBULIN RATIO 1.1 (1.1-1.5); ALKALINE PHOSPHATASE 61 IU/L (46-116); ANION GAP 11 (8-16); ASPARTATE AMINO TRANSFERASE 22 U/L (10-37); BILIRUBIN,TOTAL 0.7 MG/DL (0.1-1.0); BLOOD UREA NITROGEN 46 MG/DL (7-18); BUN/CREATININE RATIO 33.8 (5.4-32.0); CALCIUM 8.7 MG/DL (8.5-10.1); CHLORIDE 116 MMOL/L (99-107); CREATININE 1.36 MG/DL (0.60-1.10); GLUCOSE 134 MG/DL (70-104); MAGNESIUM 2.1 MG/DL (1.5-2.4); POTASSIUM 3.1 MMOL/L (3.5-5.1); SODIUM 144 MMOL/L (135-145); TOTAL CARBON DIOXIDE 16.8 MMOL/L (24-32); TOTAL PROTEIN 4.7 G/DL (6.4-8.2); eGFR 50 ML/MIN
[2020-02-04] MEDS: CITALOpram 10mg tablet PO SCH (08:00)
[2020-02-04] MEDS: famotidine 20mg tablet PO SCH (08:00)
[2020-02-04] MEDS: furosemide 20MG tablet PO SCH (08:00)
[2020-02-04] MEDS: K and/or MAG REPLACEMENT MC SCH (08:00)
[2020-02-04] MEDS: fluticasone nasal spray 16GM bottle NS SCH (08:00)
[2020-02-04] MEDS: sodium bicarbonate 650mg tablet PO SCH ×2 (08:00→12:36)
[2020-02-04] MEDS: gabapentin 300mg capsule PO SCH ×2 (08:00→12:38)
[2020-02-04] MEDS: tamsulosin 0.4mg capsule PO SCH (08:00)
--- NOTE | 2020-02-04 08:45 | NUR ---
PAGER ID: [phone] MESSAGE: LORNE Renteria Rm [id number] .Pt is obtunded upon assesment and unable to respond clearly. I held all PO med requesting a swallow aj.and please advise if NG tube is needed. family will address code/ hospice status today per RN report.
[2020-02-04 11:00] VITALS: BP 101/43
[2020-02-04 15:00] VITALS: BP 105/49
[2020-02-04] MEDS ORDERED: morphine 10mg/0.5ml (conc. morphine) oral syringe PO PRN (15:05)
[2020-02-04] MEDS ORDERED: LORazepam 2 mg/ml vial IV PRN (15:05)
--- NOTE | 2020-02-04 18:45 | NUR ---
pt has been ubtunded and unable to communicate all day. Pt woke up and communicating clearly @ 1800. Pt is requesting water and I called all daughters and in order to speak. Pt is going on comfort care and has on DNR band.
--- NOTE | 2020-02-04 18:56 | NUR ---
unable to access pain and pupils Addendum: 02/04/20 at 1904 by Maryjo Bhandari RN Amended: Links added.
--- NOTE | 2020-02-05 12:59 | NUR ---
Patient in room PCU 3018. I have received report from Maryjo KAMARA and had the opportunity to ask questions and assume patient care.
--- NOTE | 2020-02-05 13:08 | NUR ---
Problems reprioritized. Patient report given, questions answered & plan of care reviewed with Zuly KAMARA.
--- NOTE | 2020-02-05 13:08 | NUR ---
Patient in room PCU 3018. I have received report from Black and had the opportunity to ask questions and assume patient care.
--- NOTE | 2020-02-05 13:09 | NUR ---
I spoke with daughter and the family is not content in the care that [facility] will be able to provide for the pt at home. It appears family is confused on the comfort care VS medical management provided and would still like the pt to receive IV fluids, medication, and paracentesis if necessary at home but concerned at the level of care needed and stress on the ( Jessika). The family met with case management and still unclear in how to move forward.
[2020-02-05 14:33] VITALS: BP 108/55
--- NOTE | 2020-02-05 15:25 | NUR ---
Pt has been made DNR w/ comfort care. [facility] 02/02. Will continue to follow. Rec: 1. bowel care per rx Addendum: 02/05/20 at [address] Amended: Links added.
--- NOTE | 2020-02-05 18:00 | NUR ---
Patient in room FILI 344. I have received report from Zuly KAMARA and had the opportunity to ask questions and assume patient care.
--- NOTE | 2020-02-05 18:15 | NUR ---
Problems reprioritized. Patient report given, questions answered & plan of care reviewed with Julieat KAMARA.
[2020-02-05 20:00] VITALS: BP 91/39
[2020-02-06] MEDS ORDERED: ibuprofen 100 MG/5 ML oral susp PO PRN (00:50)
--- NOTE | 2020-02-06 06:39 | NUR ---
Problems reprioritized. Patient report given, questions answered & plan of care reviewed with Zuly KAMARA.
--- NOTE | 2020-02-06 06:48 | NUR ---
Patient in room FILI 344. I have received report from Julieta KAMARA and had the opportunity to ask questions and assume patient care.
[2020-02-06 07:00] VITALS: BP 98/44
[2020-02-06 18:00] VITALS: BP 117/48
--- NOTE | 2020-02-06 18:00 | NUR ---
Patient in room FILI 344. I have received report from Zuly KAMARA and had the opportunity to ask questions and assume patient care.
--- NOTE | 2020-02-06 18:10 | NUR ---
Problems reprioritized. Patient report given, questions answered & plan of care reviewed with Julieta KAMARA.
--- NOTE | 2020-02-07 06:19 | NUR ---
Problems reprioritized. Patient report given, questions answered & plan of care reviewed with Padmini KAMARA.
--- NOTE | 2020-02-07 06:30 | NUR ---
Patient in room FILI 344. I have received report from DEBRA KAMARA and had the opportunity to ask questions and assume patient care.
[2020-02-07 07:00] VITALS: BP 99/48
[2020-02-07 10:45] VITALS: BP 95/43
[2020-02-07] MEDS ORDERED: albumin (human) 25% 100 ML IV solution IV ONE (11:15)
[2020-02-07 11:31] VITALS: BP 90/35
[2020-02-07] MEDS ORDERED: famotidine 20mg tablet PO PRN (15:20)
--- NOTE | 2020-02-07 18:00 | NUR ---
Problems reprioritized. Patient report given, questions answered & plan of care reviewed with PAT RN.
[2020-02-07 19:30] VITALS: BP 88/40
--- NOTE | 2020-02-07 19:30 | NUR ---
horacio not in room; pt customer care voice consultant reports daughter was here assisting with dinner & does not know how much pt ate Addendum: 02/08/20 at 0303 by Romi Diggs RN Amended: Links added.
--- NOTE | 2020-02-08 07:10 | NUR ---
Patient in room FILI 344. I have received report from Pat RN and had the opportunity to ask questions and assume patient care.
[2020-02-08 07:48] VITALS: BP 76/31
[2020-02-08 18:00] VITALS: BP 102/47
--- NOTE | 2020-02-08 18:15 | NUR ---
Patient in room FILI 344. I have received report from Edyta KAMARA and had the opportunity to ask questions and assume patient care.
--- NOTE | 2020-02-08 18:41 | NUR ---
Problems reprioritized. Patient report given, questions answered & plan of care reviewed with Melisa KAMARA.
--- NOTE | 2020-02-09 06:27 | NUR ---
Problems reprioritized. Patient report given, questions answered & plan of care reviewed with Yesi KAMARA.
--- NOTE | 2020-02-09 06:33 | NUR ---
Patient in room FILI 344. I have received report from ASAD Vincent and had the opportunity to ask questions and assume patient care.
[2020-02-09 07:06] VITALS: BP 82/30
--- NOTE | 2020-02-09 10:06 | NUR ---
PAGER ID: [phone] MESSAGE: Lorna-Surg [id number] Re: Antonia 344A Case management states [facility] will take patient today. Hortensia Cargo will be coming at noon if you will be discharging please call.
== END 2020-02-09 12:13 | disposition hospice, home (50) | DRG 432 ==
LOC: ER 14:06 → ED HOLD 16:29 → PCU 3S 20:08 → SUR 3N 02-05 13:40
PROVIDERS: ADMIT Family Medicine; ATTEND Family Medicine
PROC: 0W9G3ZZ Drainage of Peritoneal Cavity, Percutaneous Approach (ICD-10-PCS; principal; 2020-02-02)
PROC: 0W9G3ZZ Drainage of Peritoneal Cavity, Percutaneous Approach (ICD-10-PCS; 2020-02-07)
DX: K70.31 Alcoholic cirrhosis of liver with ascites (principal); E43 Unspecified severe protein-calorie malnutrition; G93.41 Metabolic encephalopathy; E87.1 Hypo-osmolality and hyponatremia; K76.6 Portal hypertension; N17.9 Acute kidney failure, unspecified; D61.818 Other pancytopenia; E87.2 Acidosis; Z51.5 Encounter for palliative care; Z66 Do not resuscitate; K72.90 Hepatic failure, unspecified without coma; R62.7 Adult failure to thrive; E86.0 Dehydration; K42.9 Umbilical hernia without obstruction or gangrene; N18.9 Chronic kidney disease, unspecified; R09.02 Hypoxemia; D69.6 Thrombocytopenia, unspecified; F10.20 Alcohol dependence, uncomplicated; I95.9 Hypotension, unspecified; Z68.28 Body mass index [BMI] 28.0-28.9, adult
CPT/HCPCS: 36415; 49083; 70450; 71045; 80053; 81003; 82140; 83605; 83735; 84100; 84484; 85007; 85008; 85025; 85610; 87040; 87081; 93005; 97110; 97116; 97162; 97530; 97535; 99285; G0378; J7030; P9047